=== PATIENT | female | born 1990 | race African-American/Black ===

== ENCOUNTER 2019-03-02 13:59 | Emergency (ER) | payer BC, OTHER ==
[2019-03-02 14:03] VITALS: BP 109/65; PULSE 91; TEMP 98; BMI 30.7
[2019-03-02] MEDS ORDERED: KETOROLAC TROMETHAMINE 30 MG/1 ML VIAL IM ONE (14:26)
[2019-03-02] MEDS ORDERED: KETOROLAC TROMETHAMINE 30 MG/1 ML VIAL ONE (14:27)
--- NOTE | 2019-03-02 14:30 | PDOC ---
History of Present Illness - General Chief Complaint: Injury Stated Complaint: TOE INJURY Time Seen by Provider: 03/02/19 14:04 History Source: Patient Exam Limitations: No Limitations - History of Present Illness Initial Comments: 03/02/19 14:27 HISTORY OF PRESENT ILLNESS: 29-year-old woman with history of bipolar disorder presents emergency department for evaluation of right fifth toe pain since 4 AM. Patient reports she was outside in establishment when she tried to apply socks lost balance striking her toe on a plastic barrier. Patient did not notice any pain at the time but when she woke up this morning had a throbbing 9/ 10 pain in her right fifth toe. Patient is having a difficult time ambulating. No recent travel or sick contacts. PAST MEDICAL HISTORY: Bipolar disorder SURGICAL HISTORY: Denies ALLERGIES: Hydrocodone REVIEW OF SYSTEMS General/Constitutional: Denies fever or chills. Denies weakness, weight change. HEENT: Denies change in vision. Denies ear pain or discharge. Denies sore throat. Cardiovascular: Denies chest pain or shortness of breath. Respiratory: Denies cough, wheezing, or hemoptysis. Gastrointestinal: Denies nausea, vomiting, diarrhea or constipation. Denies rectal bleeding. Genitourinary: Denies dysuria, frequency, or change in urination. Musculoskeletal: See HPI Skin and breasts: Denies rash or easy bruising. Neurologic: Denies headache, vertigo, loss of consciousness, or loss of sensation. Psychiatric: Denies depression or anxiety. Endocrine: Denies increased thirst. Denies abnormal weight change. Hematologic/Lymphatic: Denies anemia, easy bleeding, or history of blood clots. Allergic/Immunologic: Denies hives or skin allergy. Denies latex allergy. PHYSICAL EXAM General Appearance: Well-appearing, appropriately dressed. No apparent distress , no intoxication. Vascular Pulses: Dorsalis-Pedis (R): 2+, Dorsalis-Pedis (L): 2+ Musculoskeletal/Extremities: FROM of all extremities, normal capillary refill. Tenderness to palpation over the distal phalanx of the right fifth toe. Swelling present. No erythema noted. Limited range of motion secondary to pain. Integumentary: Appropriate color, dry, warm. No cyanosis, erythema, jaundice or rash Neurologic: sustainable design consultant II-XII intact. Fully oriented, alert. Appropriate mood/affect. Motor strength 5/5. No appreciable EOM palsy, facial droop or sensory deficit. Past History - Past Medical History Allergies/Adverse Reactions: Allergies Allergy/AdvReac Type Severity Reaction Status Date / Time banana Allergy Verified 03/02/19 14:03 Home Medications: Ambulatory Orders NK [No Known Home Medication] 07/10/15 Asthma: Yes COPD: No - Psycho Social/Smoking Cessation Hx Smoking History: Never smoked *Physical Exam - Vital Signs Last Vital Signs Temp Pulse Resp BP Pulse Ox 98 F 91 H 18 109/65 99 03/02/19 14:00 03/02/19 14:00 03/02/19 14:00 03/02/19 14:00 03/02/19 14:00 ED Treatment Course - RADIOLOGY Radiology Studies Ordered: Category Date Time Status TOE(S) RIGHT [RAD] Stat Radiology 03/02/19 14:26 Ordered Medical Decision Making - Medical Decision Making 03/02/19 14:29 A/P: 29-year-old woman with right fifth toe pain status post direct trauma X-rays Toradol 30 mg IM now Reassess 03/02/19 14:48 X-rays as read by me: No acute fractures dislocations are present. Linear lucency present on the proximal phalanx of the right fifth toe not seen on other views. Likely not a fracture as it extends beyond the cortex. David tape Hard sole shoe Discharge home I discussed the physical exam findings, ancillary test results and final diagnoses with the patient. I answered all of the patient's questions. The patient was satisfied with the care received and felt comfortable with the discharge plan and treatment plan. The patient will call their primary care physician within 24 hours to arrange follow-up and will return to the Emergency Department with any new, persistent or worsening symptoms. Discharge - Discharge Information Problems reviewed: Yes Clinical Impression/Diagnosis: Toe contusion Qualifiers: Encounter type: initial encounter Toe: lesser toe Damage to nail status: without damage Laterality: right Qualified Code(s): S90.121A - Contusion of right lesser toe(s) without damage to nail, initial encounter Condition: Stable Disposition: HOME - Admission No - Follow up/Referral Referrals: Krish Rivera [Primary Care Provider] - Bennie Tapia DPM [Staff Physician] - Aki Molina MD [Staff Physician] - - Patient Discharge Instructions Additional Instructions: Take Tylenol or Motrin as needed for pain. Follow banker mason's instructions for appropriate dosage. Use hard soled shoe to keep your toe from bending while it heals. Your x-rays today showed no fractures. You have been given a referral for resources representative if symptoms persist for more than 7 days contact to schedule an appointment. Return to the emergency department for any new or worsening symptoms. Thank you very much for choosing us to provide your emergent healthcare needs. - Post Discharge Activity Work/Back to School Note: Back to Work
== END 2019-03-02 14:53 | disposition home or self-care (01) ==
LOC: JERFT 13:59
PROC: 2W3UXYZ Immobilization of Right Toe using Other Device (ICD-10-PCS; principal; 2019-03-02)
DX: S90.121A Contusion of right lesser toe(s) without damage to nail, initial encounter (principal); W22.09XA Striking against other stationary object, initial encounter; Y93.89 Activity, other specified; Y92.59 Other trade areas as the place of occurrence of the external cause; Y99.8 Other external cause status; F31.9 Bipolar disorder, unspecified; J45.909 Unspecified asthma, uncomplicated
CPT/HCPCS: 73660-TC-FY; 99282-25

== ENCOUNTER 2022-06-22 10:08 | Emergency (ER) | payer SELFPAY ==
[2022-06-22 10:13] VITALS: BP 107/69; PULSE 91; RESP 18; TEMP 98.5; BMI 33.9
== END 2022-06-22 13:42 | disposition home or self-care (01) ==
LOC: JER 10:08 → JERFT 10:08
DX: S61.101A Unspecified open wound of right thumb with damage to nail, initial encounter (principal); W01.0XXA Fall on same level from slipping, tripping and stumbling without subsequent striking against object, initial encounter; W23.0XXA Caught, crushed, jammed, or pinched between moving objects, initial encounter
CPT/HCPCS: 99282-25